=== PATIENT | male | born 1995 | race Caucasian/White ===

== ENCOUNTER → 2024-03-26 07:13 | Outpatient (REF) | payer OTHER, SELFPAY | LOC: HWRAD 07:13 | PROVIDERS: ATTENDING PHYSICIAN Otolaryngology; FAMILY PHYSICIAN Nurse Practitioner | DX: J33.0 Polyp of nasal cavity (principal); J34.2 Deviated nasal septum; J32.2 Chronic ethmoidal sinusitis | CPT/HCPCS: 70486 ==

== ENCOUNTER 2024-07-02 06:04 | Day surgery (SDC) | payer OTHER, SELFPAY ==
[2024-07-02] VITALS (10 sets, daily range): BP systolic 112–146; BP diastolic 80–92; BMI 23.1
[2024-07-02] MEDS: NORMOSOL-R/PLASMALYTE-A 1000 IV (07:30)
== END 2024-07-02 10:55 | disposition home or self-care (01) ==
LOC: SDS 06:04
PROVIDERS: ATTENDING PHYSICIAN Otolaryngology
DX: J34.2 Deviated nasal septum (principal); J33.0 Polyp of nasal cavity; J32.0 Chronic maxillary sinusitis; J34.3 Hypertrophy of nasal turbinates
CPT/HCPCS: 31267; 30802; 30520; 88311